=== PATIENT | male | born 1990 | race Hispanic/Latino ===

== ENCOUNTER 2017-10-07 04:34 | Emergency (ER) | payer OTHER ==
--- NOTE | 2017-10-07 05:27 | ED PDOC ---
HPI: Allergic Reaction Time Seen by Provider: 10/07/17 04:42 Chief Complaint (Nursing): Allergic Reaction Chief Complaint (Provider): Allergic Reaction History Per: Patient History/Exam Limitations: no limitations Onset/Duration Of Symptoms: Hrs Current Symptoms Are (Timing): Still Present Possible Cause: Unknown Associated Symptoms: Trouble Swallowing Additional Complaint(s): 27 year old male presents to the ED today after waking up from sleep twice earlier this morning. Patient feels like throat was "closing up" and presents with difficulty swallowing and dyspnea. Patient reports he was out drinking last night and had spicy wings. Patient states he has had spicy food, wings, and spicy wings before in the past with no difficulty swallowing or allergic reaction. Patient thought it was a food allergy but he also felt like he had difficulty taking a deep breath prompting concern, thus prompting today's visit to the ED. Additionally, patient reports of left sided abdominal pain yesterday lasting for approximately five hours but have completely resolved now. Patient states he travels to and from [facility] or [place] twice a week. Patient reports he goes to work via train or car and returns to his home in [place] at the end of the week. Patient states commute lasts about two hours. Otherwise : (-) fever, (-) cough, (-) chest pain, (-) abdominal pain at the present, (-) nausea, (-) vomiting, (-) diarrhea, (-) constipation, (-) calf swelling/pain, (- ) hospitalizations, (-) history of blood clots, (-) dizziness, (-) associated with exertion, (-) headache. PMD: None Provided Past Medical History Reviewed: Historical Data, Nursing Documentation, Vital Signs Vital Signs: Last Vital Signs Temp 97.9 F 10/07/17 04:36 Pulse 85 10/07/17 04:36 Resp 18 10/07/17 04:36 BP 138/92 H 10/07/17 04:36 Pulse Ox 98 10/07/17 04:36 - Medical History PMH: No Chronic Diseases - Surgical History Surgical History: No Surg Hx - Family History Family History: States: No Known Family Hx - Allergies Allergies/Adverse Reactions: Allergies Allergy/AdvReac Type Severity Reaction Status Date / Time No Known Allergies Allergy Verified 10/07/17 04:36 Review of Systems ROS Statement: Except As Marked, All Systems Reviewed And Found Negative ENT: Positive for: Throat Swelling Gastrointestinal: Positive for: Abdominal Pain (left sided abdominal pain yesterday) Physical Exam - Reviewed Nursing Documentation Reviewed: Yes Vital Signs Reviewed: Yes - Physical Exam Comments: GENERAL APPEARANCE: Patient is awake, alert, oriented x 3, in no acute distress. Speaking in full sentences. SKIN: Warm, dry, (-) rash, (-) lesions. HENT: (-) conjunctival injection, (-) chemosis. Oropharynx: clear (-) tongue or lip swelling, (-) tonsillar exudates, (-) erythema. Airway: patent (-) stridor, (-) hoarseness, (-) edema to the uvula or posterior pharynx. Mucous membranes moist. Nares: Patent (-) rhinorrhea. NECK: (-) lymphadenopathy, (-) tenderness. CARDIOVASCULAR: Normal rate and rhythm. (-) murmur, (-) gallop. CHEST: (-) rales, (-) wheezing, (-) dyspnea, (-) stridor. Breath sounds equal bilaterally. ABDOMEN: Soft. (-) tenderness, (-) distention, (-) HSM. NEURO: Mental status: Patient is alert, oriented, and with normal strength and tone. - Laboratory Results Result Diagrams: 10/07/17 05:20 10/07/17 05:20 - ECG ECG: Positive for: Interpreted By Me Rate: 76 (NSR, no acute ST changes) O2 Sat by Pulse Oximetry: 98 (RA) Pulse Ox Interpretation: Normal - Other Rad XR soft tissue neck X-Ray: Interpreted by Me X-Ray Interpretation: no thumb sign, wnl CXR X-Ray: Interpreted by Me X-Ray Interpretation: NAD - Progress ED Course And Treament: Time: 0505 Plan: -- EKG -- IV Insertion -- Neck Soft Tissue XR -- CMP -- Troponin -- CBCC with differentials -- D Dimer -- NS bolus IV 0600 Labs reviewed and wnl, trop (-), d-dimer (-). On re-evaluation, patient reports improvement of symptoms, denies any throat swelling CP, dyspnea or SOB. On exam, patient remains AAOx3, in no acute distress. Lab results reviewed and d/w the patient. Diagnostic results d/w the patient in great detail. Diagnosis of possible panic attack d/w the patient. Based on history, exam and diagnostic results, plan will be for outpatient follow up. Patient instructed to follow-up with pmd / referral provided in 1-2 days without fail. Return to the emergency room at any time for any new or worsening symptoms. Patient states he fully agrees with and understands discharge instructions. States that he agrees with the plan and disposition. Verbalized and repeated discharge instructions and plan. I have given the patient opportunity to ask any additional questions. Scribe Attestation: Documented by Rona Cordova, acting as a scribe for Dr. Viraj Marks MD. Provider Scribe Attestation: All medical record entries made by the Scribe were at my direction and personally dictated by me. I have reviewed the chart and agree that the record accurately reflects my personal performance of the history, physical exam, medical decision making, and the department course for this patient. I have also personally directed, reviewed, and agree with the discharge instructions and disposition. Disposition - Clinical Impression Clinical Impression: Panic attack - Patient ED Disposition Is Patient to be Admitted: No Counseled Patient/Family Regarding: Studies Performed, Diagnosis, Need For Followup - Disposition Referrals: Donal Julio MD [Staff Provider] - Disposition: Routine/Home Disposition Time: 06:00 Condition: IMPROVED Additional Instructions: Thank you for letting us take care of you today. You were treated for panic attack. The emergency medical care you received today was directed at your acute symptoms. Return to the Emergency Department if your symptoms worsen, do not improve, or if you have any other problems. Please contact your doctor in 2 days for re-evaluation and follow up / or call one of the physicians/clinics you have been referred to that are listed on the Patient Visit Information form that is included in your discharge packet. Bring any paperwork you were given at discharge with you along with any medications you are taking to your follow up visit. Our treatment cannot replace ongoing medical care by a primary care provider (PCP) outside of the emergency department. Thank you for allowing the [facility] team to be part of your care today. Instructions: Panic Disorder (DC) Forms: [employer] (Serbian)
--- NOTE | 2017-10-07 05:30 | ED PDOC ---
HPI: Allergic Reaction Time Seen by Provider: 10/07/17 04:42 Chief Complaint (Nursing): Allergic Reaction Past Medical History Vital Signs: Last Vital Signs Temp 97.9 F 10/07/17 04:36 Pulse 85 10/07/17 04:36 Resp 18 10/07/17 04:36 BP 138/92 H 10/07/17 04:36 Pulse Ox 98 10/07/17 04:36 - Allergies Allergies/Adverse Reactions: Allergies Allergy/AdvReac Type Severity Reaction Status Date / Time No Known Allergies Allergy Verified 10/07/17 04:36 - ECG O2 Sat by Pulse Oximetry: 98 Disposition - Disposition
[2017-10-07 05:39] LABS: BASO % 0.7 % (0.0-2.0); EOS # 0.3 K/uL (0.0-0.7); HEMOGLOBIN 15.3 g/dL (12.0-18.0); LYMPH % 31.5 % (20.0-40.0); MEAN CELL VOLUME 88.5 fl (80.0-94.0); MEAN CORPUSCULAR HEMOGLOBIN 31.1 pg (27.0-31.0); MEAN CORPUSCULAR HGB CONC 35.1 g/dL (33.0-37.0); MEAN PLATELET VOLUME 8.4 fl (7.2-11.7); MONO # 0.5 K/uL (0.0-0.8); MONO % 7.6 % (0.0-10.0); NEUT # 3.6 K/uL (1.8-7.0); NEUT % 56.2 % (50.0-75.0); RBC 4.94 Mil/uL (4.40-5.90); WHITE BLOOD COUNT 6.4 K/uL (4.8-10.8)
[2017-10-07 05:41] LABS: ALB/GLOB RATIO 1.2 (1.0-2.1); ALBUMIN 4.4 g/dL (3.5-5.0); ALT/SGPT 37 U/L (21-72); AST/SGOT 31 U/L (17-59); BLOOD UREA NITROGEN 21 mg/dl (9-20); CALCIUM 9.5 mg/dL (8.4-10.2); GFR AFRICAN-AMERICAN > 60; GFR NON-AFRICAN AMERICAN > 60
[2017-10-07] MEDS ORDERED: Sodium Chloride 0.9% 1,000 ML IV STA (05:51)
[2017-10-07 07:01] VITALS: BP 155/78; PULSE 79; RESP 15; TEMP 98.1; O2SAT 99
--- NOTE | 2017-10-07 09:39 | RAD ---
PROCEDURE: Radiographs of the neck (soft tissue). HISTORY: throat swelling COMPARISON: None. TECHNIQUE: Frontal and Lateral Radiographs of the neck, optimized for soft tissue visualization. FINDINGS: SOFT TISSUES: Unremarkable. No radiopaque foreign body seen. CERVICAL SPINE: Grossly unremarkable. OTHER FINDINGS: None. IMPRESSION: Unremarkable radiographs of the soft tissues of the neck.
--- NOTE | 2017-10-07 09:46 | RAD ---
HISTORY: dyspnea COMPARISON: No prior. TECHNIQUE: Chest PA and lateral FINDINGS: LUNGS: No active pulmonary disease. PLEURA: No significant pleural effusion identified. No pneumothorax apparent. CARDIOVASCULAR: Normal. OSSEOUS STRUCTURES: No significant abnormalities. VISUALIZED UPPER ABDOMEN: Normal. OTHER FINDINGS: None. IMPRESSION: No acute cardiopulmonary disease appreciated.
--- NOTE | 2017-10-07 11:17 | CARD ---
APPROVED REPORT EKG Measurement Heart [id number] <Conclusion> Normal sinus rhythm Normal ECG
== END 2017-10-07 07:04 | disposition home or self-care (01) ==
LOC: H.ER 04:34
DX: T78.40XA Allergy, unspecified, initial encounter (principal); F41.0 Panic disorder [episodic paroxysmal anxiety]
CPT/HCPCS: 70360; 71046; 80053; 84484; 85025; 85378; 93005; 96360; 99283; J7030